=== PATIENT | male | born 1965 | race Caucasian/White ===

== ENCOUNTER 2020-08-18 10:57 | Day surgery (SDC) | payer OTHER ==
[~2020-08-18] VITALS: Ht 177.8 cm; Wt 91.7 kg
[~2020-08-18 10:57] MED LIST: No meds per pt.
[2020-08-18 11:29] VITALS: BP 115/84
[2020-08-18] MEDS ORDERED: CHLORHEXIDINE 15 ML UDC PO ONE (11:30)
[2020-08-18] MEDS ORDERED: LACTATED RINGERS 1,000 ML IV SCH (11:30)
[2020-08-18] MEDS ORDERED: CHLORHEXIDINE 15 ML UDC ONE (11:34)
[2020-08-18] MEDS ORDERED: EPINEPHRINE 1 MG/ML, 1ML ONE (12:12)
[2020-08-18] MEDS ORDERED: BUPIVACAINE/PF 0.5% ONE (12:12)
[2020-08-18] MEDS ORDERED: MIDAZOLAM 1 MG/ML, 2ML ONE (12:20)
[2020-08-18] MEDS ORDERED: FENTANYL PF 250 MCG/5ML ONE (12:21)
[2020-08-18] MEDS ORDERED: FENTANYL PF 100 MCG/2ML ONE ×2 (13:48→14:18)
[2020-08-18] MEDS: FENTANYL PF 100 MCG/2ML IV PRN ×3 (13:50→14:21)
[2020-08-18] MEDS ORDERED: NEOSTIGMINE 1 MG/ML, 10ML ONE (13:54)
[2020-08-18] MEDS ORDERED: CEFAZOLIN 1,000 MG ONE (13:54)
[2020-08-18] MEDS ORDERED: ONDANSETRON 2MG/ML, 2ML ONE (13:54)
[2020-08-18] MEDS ORDERED: PROPOFOL 10 MG/ML, 20ML ONE (13:54)
[2020-08-18] MEDS ORDERED: SUCCINYLCHOLINE 20 MG/ML, 10ML ONE (13:54)
[2020-08-18] MEDS ORDERED: DEXAMETHASONE 4 MG/ML, 1ML ONE (13:54)
[2020-08-18] MEDS ORDERED: GLYCOPYRROLATE 0.2MG/1ML, 5ML ONE (13:54)
[2020-08-18] MEDS ORDERED: ROCURONIUM 10MG/ML,5ML ONE (13:54)
[2020-08-18] MEDS ORDERED: PROMETHAZINE 25 MG SUPP PR PRN (14:00)
[2020-08-18] MEDS ORDERED: HYDROmorphone 1 MG/ML, 1ML INJ IVPush PRN (14:00)
[2020-08-18] MEDS ORDERED: METHOCARBAMOL 1,000 MG in DEXTROSE 5% 100 ML IV PRN (14:00)
[2020-08-18] MEDS ORDERED: MEPERIDINE/PF 25MG/0.5ML IVPush PRN (14:00)
[2020-08-18] MEDS ORDERED: ACETAMINOPHEN 325 MG TABLET PO PRN (14:00)
[2020-08-18] MEDS ORDERED: PROMETHAZINE 25 MG/ML, 1ML IVPush PRN (14:00)
[2020-08-18] MEDS ORDERED: ONDANSETRON 2MG/ML, 2ML IVPush PRN (14:00)
[2020-08-18] MEDS ORDERED: LORazepam 2 MG/ML, 1ML IVPush PRN (14:00)
[2020-08-18] MEDS ORDERED: ACETAMINOPHEN 650 MG/20.3 ML UDC ONE (14:02)
[2020-08-18] MEDS ORDERED: OXYcodone 5 MG/5 ML ORAL.SOL UDC ONE (14:03)
[2020-08-18] MEDS: OXYcodone 5 MG/5 ML ORAL.SOL UDC PO PRN ×2 (14:04→15:59)
== END 2020-08-18 17:05 | disposition home or self-care (01) ==
LOC: OUT 10:57
PROVIDERS: ATTEND Surgery
DX: K40.20 Bilateral inguinal hernia, without obstruction or gangrene, not specified as recurrent (principal); D17.6 Benign lipomatous neoplasm of spermatic cord; M19.90 Unspecified osteoarthritis, unspecified site; Z20.822 Contact with and (suspected) exposure to COVID-19; Z79.1 Long term (current) use of non-steroidal anti-inflammatories (NSAID); Z79.899 Other long term (current) drug therapy
CPT/HCPCS: 49650; 87635; C1781; J0171; J0330; J0690; J1100; J2250; J2405; J2704; J2710; J2800; J3010; J7120; S2900